=== PATIENT | female | born 1995 | race Caucasian/White ===

== ENCOUNTER 2023-09-07 19:42 | Emergency (ER) | payer OTHER ==
[~2023-09-07] VITALS: Ht 170.2 cm; Wt 90.7 kg
== END 2023-09-07 21:34 | disposition home or self-care (01) ==
LOC: ER 19:42
DX: B09 Unspecified viral infection characterized by skin and mucous membrane lesions (principal); L25.9 Unspecified contact dermatitis, unspecified cause; Z88.1 Allergy status to other antibiotic agents; Z88.5 Allergy status to narcotic agent; Z91.018 Allergy to other foods; Z88.8 Allergy status to other drugs, medicaments and biological substances
CPT/HCPCS: 99282